=== PATIENT | male | born 1970 | race Asian ===

== ENCOUNTER 2016-07-23 16:14 | Emergency (ER) | payer MEDICAID ==
[~2016-07-23] VITALS: Ht 175.3 cm; Wt 85.9 kg
[2016-07-23] MEDS ORDERED: GuaiFENesin/D-METHORPHAN [SUGAR-FREE] 200-20MG/10 ML SYRUP UDCUP PO ONE (16:45)
[2016-07-23] MEDS ORDERED: IBUPROFEN 800 MG TABLET PO ONE (16:45)
[2016-07-23 17:33] LABS: INFLUENZA TYPE B NEGATIVE FOR TYPE B (NEGATIVE)
[2016-07-23 17:52] VITALS: BP 136/79
== END 2016-07-23 17:59 | disposition home or self-care (01) ==
LOC: EMS 16:16
DX: J06.9 Acute upper respiratory infection, unspecified (principal)
CPT/HCPCS: 87804; 99285

== ENCOUNTER 2017-04-23 10:42 | Emergency (ER) | payer BC, OTHER ==
[~2017-04-23] VITALS: Ht 180.3 cm; Wt 90.5 kg
[2017-04-23 12:52] LABS: INFLUENZA TYPE B NEGATIVE FOR TYPE B (NEGATIVE)
[2017-04-23 13:42] VITALS: BP 126/87
== END 2017-04-23 13:46 | disposition home or self-care (01) ==
LOC: EMS 10:42
DX: J39.9 Disease of upper respiratory tract, unspecified (principal)
CPT/HCPCS: 87804; 99285